=== PATIENT | male | born 1995 | race African-American/Black ===

== ENCOUNTER 2025-02-10 02:33 | Emergency (ER) | payer BC ==
[2025-02-10 02:43] VITALS: TEMP 97.9; BMI 29.7
[2025-02-10] MEDS ORDERED: LIDOCAINE 2.5%/PRILOCAINE 2.5% (5 Gram/TUBE) TP ONE (03:16)
[2025-02-10] MEDS ORDERED: AMOX TR/POT CLAV 875MG/125MG TABLETS (FP) PO ONE (04:07)
[2025-02-10] MEDS ORDERED: AMOX TR/POT CLAV 875MG/125MG TABLETS (FP) ONE (04:29)
[2025-02-10] MEDS ORDERED: ERYTHROMYCIN 0.5% OPHTHALMIC OINTMENT 3.5 GM TUBE ONE (04:29)
[2025-02-10] MEDS: AMOX TR/POT CLAV 875MG/125MG TABLETS (FP) PO ONE (04:34)
[2025-02-10] MEDS: ERYTHROMYCIN 0.5% OPHTHALMIC OINTMENT 3.5 GM TUBE OS ONE (04:34)
[2025-02-10 04:41] VITALS: BP 130/70; PULSE 88; RESP 16
== END 2025-02-10 04:41 | disposition home or self-care (01) ==
LOC: JER 02:33
PROC: 0CQ0XZZ Repair Upper Lip, External Approach (ICD-10-PCS; principal; 2025-02-10)
DX: S01.511A Laceration without foreign body of lip, initial encounter (principal); S00.212A Abrasion of left eyelid and periocular area, initial encounter; W10.8XXA Fall (on) (from) other stairs and steps, initial encounter
CPT/HCPCS: 99283-25